=== PATIENT | male | born 1955 | race Caucasian/White ===

== ENCOUNTER 2016-08-14 14:18 | Emergency (ER) | payer BC ==
[2016-08-14 14:30] VITALS: RESP 18; TEMP 97.9
--- NOTE | 2016-08-14 14:36 | ED ---
Wound/Laceration HPI - General Chief Complaint: Wound/Laceration Stated Complaint: left hand lac (Chainsaw) Time Seen by Provider: 08/14/16 14:23 Source: patient, RN notes reviewed Mode of arrival: ambulatory Limitations: no limitations - History of Present Illness Initial Comments: 61-year-old male presents to the emergency Department chief complaint of left hand laceration. Patient is using the chainsaw today and he cut his left hand. Patient states he has no numbness or tingling. Patient states he has no changes in range of motion. Patient states he is at [place] tetanus. Patient states that he was concerned because he saw the blood in the severity of the cut. Patient states is not currently having any other symptoms at this time. Patient denies any recent fever, chills, shortness of breath, chest pain, back pain, abdominal pain, nausea vomiting, numbness or tingling, dysuria or hematuria, constipation or diarrhea, headaches or visual changes, or any other current symptoms. Review of Systems ROS Statement: Those systems with pertinent positive or pertinent negative responses have been documented in the HPI. ROS Other: All systems not noted in ROS Statement are negative. Past Medical History Past Medical History: No Reported History History of Any Multi-Drug Resistant Organisms: None Reported Past Surgical History: Orthopedic Surgery Additional Past Surgical History / Comment(s): Brain Hemmorage in 1998. Past Psychological History: No Psychological Hx Reported Smoking Status: Never smoker Past Alcohol Use History: Occasional Past Drug Use History: None Reported General Exam Limitations: no limitations General appearance: alert, in no apparent distress Respiratory exam: Present: normal lung sounds bilaterally. Absent: respiratory distress, wheezes, rales, rhonchi, stridor Cardiovascular Exam: Present: regular rate, normal rhythm, normal heart sounds. Absent: systolic murmur, diastolic murmur, rubs, gallop, clicks Left Elbow exam: Present: normal inspection, full ROM. Absent: tenderness, swelling Forearm Wrist exam: Present: normal inspection, full ROM. Absent: tenderness, swelling Hand Wrist exam: Present: full ROM, laceration (To the left hyperthenar area is about 3-4 cm in total with multiple stellate areas.). Absent: tenderness, swelling Neuro motor exam: Present: wrist extension intact, thumb opposition intact, thumb IP flexion intact, thumb adduction intact, fingers 2-5 abduction intact Neurosensory exam: Present: 2-point discrimination, radial nerve intact, ulnar nerve intact, median nerve intact Vascular: Present: normal capillary refill. Absent: vascular compromise Neurological exam: Present: alert, oriented X3 Psychiatric exam: Present: normal affect, normal mood Course Vital Signs 08/14/16 14:24 Temperature 97.9 F Pulse Rate 88 Respiratory 18 Rate Blood Pressure 196/102 O2 Sat by Pulse 100 Oximetry Procedures - Procedures Initial comment: The skin was anesthetized with 1% lidocaine. The laceration was then cleansed with Betadine and irrigated with normal saline. The wound was inspected, and there was no evidence of injury to deep structures. No foreign body was noted in the wound. A total of 14 skin sutures were placed utilizing bilateral nylon to a 6 cm left hand laceration that is stellate Medical Decision Making - Medical Decision Making 61-year-old male presents for a left hand laceration. Patient is up-to-date on his immunizations. Patient underwent suture care. We discussed return parameters and follow-up. We discussed outpatient family's questions. They stated they understood a management plan. This time they will be discharged home. - Radiology Data Radiology results: report reviewed, image reviewed Disposition Clinical Impression: Laceration of left hand Disposition: HOME SELF-CARE Condition: Stable Instructions: Laceration (ED) Additional Instructions: Please use medication as discussed. Please follow up with family doctor if symptoms have not improved over the next two days. Please return to the emergency room if your symptoms increase or worsen or for any other concerns. Please return to the emergency room in 8-10 days to have sutures removed. Please leave wound covered for the first 24-48 hours and then leave open to air after that time. Please use clean soap and water to clean the suture area to prevent scabbing over the top of your sutures. Please watch for any signs of infection which may include but not limited to increased pain, swelling, redness , fever or chills. Please return to the emergency room if any signs of infection do occur. Please return to the emergency room for any other concerns or complications. Referrals: Alice Stock MD [Primary Care Provider] - 1-2 days Time of Disposition: 15:14
--- NOTE | 2016-08-14 14:48 | XR ---
Left hand HISTORY: Laceration, trauma 3 views of the left hand Bone mineralization and alignment are maintained. Soft tissue defect compatible with patient's histor y of laceration is noted at the thenar eminence. There is no radiopaque foreign body. Osteoarthritic change is mild. IMPRESSION: No acute fracture or dislocation is evident.
[2016-08-14] MEDS ORDERED: cloNIDine HCL 0.1 MG TAB PO STA (15:24)
[2016-08-14 15:31] VITALS: BP 198/99; PULSE 80
== END 2016-08-14 15:31 | disposition home or self-care (01) ==
LOC: EC 14:18
DX: S61.412A Laceration without foreign body of left hand, initial encounter (principal); I10 Essential (primary) hypertension; W29.3XXA Contact with powered garden and outdoor hand tools and machinery, initial encounter
CPT/HCPCS: 12002; 99283

== ENCOUNTER 2017-06-09 21:49 | Emergency (ER) | payer BC ==
[2017-06-09 22:20] VITALS: TEMP 98
[2017-06-09] MEDS ORDERED: hydrALAZINE HCL 20 MG/ML 1 ML VIAL IVP STA (22:34)
--- NOTE | 2017-06-09 22:38 | ED ---
General Adult HPI - General Chief complaint: Recheck/Abnormal Lab/Rx Stated complaint: High Blood Pressure Time Seen by Provider: 06/09/17 22:00 Source: patient, RN notes reviewed Mode of arrival: ambulatory Limitations: no limitations - History of Present Illness Initial comments: This is a 62-year-old male who presents to the emergency department with past medical history significant for hypertension. Patient states he used to take hypertensive medications but stopped in 2012 because he couldn't afford them anymore. Patient states his blood pressure normally runs about 148 systolic. Patient states over the last couple of days at night he noted his blood pressure is elevated and he has had some slightly blurred vision though currently he is not having any blurred vision he denies any headache he denies numbness weakness. Patient denies any chest pain palpitations difficulty breathing or shortness of breath. Patient states currently he is completely asymptomatic he just took his blood pressure noted to be 205 and thought he needed to be seen. Patient states he can again for blood pressure medications if that is necessary. - Related Data Home Medications Medication Instructions Recorded Confirmed Aspirin 81 mg PO ONCE PRN 06/09/17 06/09/17 Previous Rx's Medication Instructions Recorded Lisinopril [Zestril] 10 mg PO DAILY #10 tab 06/09/17 Allergies Allergy/AdvReac Type Severity Reaction Status Date / Time Penicillins Allergy Anaphylaxis Verified 06/09/17 22:54 Review of Systems ROS Statement: Those systems with pertinent positive or pertinent negative responses have been documented in the HPI. ROS Other: All systems not noted in ROS Statement are negative. Past Medical History Past Medical History: No Reported History History of Any Multi-Drug Resistant Organisms: None Reported Past Surgical History: Orthopedic Surgery Additional Past Surgical History / Comment(s): Brain Hemmorage in 1998. Past Psychological History: No Psychological Hx Reported Smoking Status: Never smoker Past Alcohol Use History: Occasional Past Drug Use History: None Reported General Exam - General Exam Comments Initial Comments: GENERAL: Patient is well-developed and well-nourished. Patient is nontoxic and well- hydrated and is in no acute distress. ENT: Neck is soft and supple. No significant lymphadenopathy is noted. Oropharynx is clear. Moist mucous membranes. Neck has full range of motion without eliciting any pain. EYES: The sclera were anicteric and conjunctiva were pink and moist. Extraocular movements were intact and pupils were equal round and reactive to light. Eyelids were unremarkable. PULMONARY: Unlabored respirations. Good breath sounds bilaterally. No audible rales rhonchi or wheezing was noted. CARDIOVASCULAR: There is a regular rate and rhythm without any murmurs gallops or rubs. ABDOMEN: Soft and nontender with normal bowel sounds. No palpable organomegaly was noted. There is no palpable pulsatile mass. SKIN: Skin is clear with no lesions or rashes and otherwise unremarkable. NEUROLOGIC: Patient is alert and oriented x3. Cranial nerves II through XII are grossly intact. Motor and sensory are also intact. Normal speech, volume and content. Symmetrical smile. MUSCULOSKELETAL: Normal extremities with adequate strength and full range of motion. No lower extremity swelling or edema. No calf tenderness. LYMPHATICS: No significant lymphadenopathy is noted PSYCHIATRIC: Normal psychiatric evaluation. Normal interpersonal interactions appears functionally intact in deals appropriately with others. No signs of depression. No signs of anxiety. Limitations: no limitations Course Vital Signs 06/09/17 22:16 Temperature 98.0 F Pulse Rate 80 Respiratory 20 Rate Blood Pressure 224/105 O2 Sat by Pulse 98 Oximetry Medical Decision Making - Medical Decision Making EKG shows normal sinus rhythm at 67 bpm WA interval is 150 QRS is 82 QT interval 388 QTC is 409. Patient's EKG shows no ST segment elevation or depression or T wave abnormalities are noted. Patient's blood pressure came down nicely after one dose of hydralazine. Patient remained asymptomatic throughout his ED course. - Lab Data Result diagrams: 06/09/17 22:46 06/09/17 22:46 Lab Results 06/09/17 06/09/17 Range/Units 22:46 22:46 WBC 8.7 (3.8-10.6) k/uL RBC 4.66 (4.30-5.90) m/uL Hgb 14.3 (13.0-17.5) gm/dL Hct 42.1 (39.0-53.0) % MCV 90.4 (80.0-100.0) fL MCH 30.8 (25.0-35.0) pg MCHC 34.0 (31.0-37.0) g/dL RDW 12.8 (11.5-15.5) % Plt Count 297 (150-450) k/uL Neutrophils % 57 % Lymphocytes % 31 % Monocytes % 4 % Eosinophils % 5 % Basophils % 1 % Neutrophils # 5.0 (1.3-7.7) k/uL Lymphocytes # 2.7 (1.0-4.8) k/uL Monocytes # 0.4 (0-1.0) k/uL Eosinophils # 0.4 (0-0.7) k/uL Basophils # 0.1 (0-0.2) k/uL Sodium 143 (137-145) mmol/L Potassium 3.9 (3.5-5.1) mmol/L Chloride 102 (98-107) mmol/L Carbon Dioxide 31 H (22-30) mmol/L Anion Gap 10 mmol/L BUN 12 (9-20) mg/dL Creatinine 0.70 (0.66-1.25) mg/dL Est GFR (MDRD) Af Amer >60 (>60 ml/min/1.73 sqM) Est GFR (MDRD) Non-Af >60 (>60 ml/min/1.73 sqM) Glucose 95 (74-99) mg/dL Calcium 9.4 (8.4-10.2) mg/dL Magnesium 2.1 (1.6-2.3) mg/dL Total Bilirubin 0.4 (0.2-1.3) mg/dL AST 27 (17-59) U/L ALT 35 (21-72) U/L Alkaline Phosphatase 74 (38-126) U/L Total Protein 6.9 (6.3-8.2) g/dL Albumin 3.9 (3.5-5.0) g/dL Disposition Clinical Impression: Hypertensive urgency Disposition: HOME SELF-CARE Condition: Good Instructions: Hypertension (ED) Prescriptions: Lisinopril [Zestril] 10 mg PO DAILY #10 tab Referrals: Nonstaff,Physician [Primary Care Provider] - 1-2 days Time of Disposition: 23:18
[2017-06-09 22:58] LABS: Basophils # (A) 0.1 k/uL (0-0.2); Basophils % (A) 1 %; Eosinophils # (A) 0.4 k/uL (0-0.7); Eosinophils % (A) 5 %; HCT 42.1 % (39.0-53.0); HGB 14.3 gm/dL (13.0-17.5); Lymphocytes # (A) 2.7 k/uL (1.0-4.8); Lymphocytes % (A) 31 %; MCH 30.8 pg (25.0-35.0); MCV 90.4 fL (80.0-100.0); Mean Platelet Volume 6.3; Monocytes # (A) 0.4 k/uL (0-1.0); Monocytes % (A) 4 %; Neutrophils % (A) 57 %; Platelet Count 297 k/uL (150-450); RBC 4.66 m/uL (4.30-5.90); RDW 12.8 % (11.5-15.5); WBC 8.7 k/uL (3.8-10.6)
[2017-06-09 23:09] LABS: ALT 35 U/L (21-72); AST 27 U/L (17-59); Albumin 3.9 g/dL (3.5-5.0); Alkaline Phosphatase 74 U/L (38-126); Anion Gap 10 mmol/L; Blood Urea Nitrogen 12 mg/dL (9-20); Calcium 9.4 mg/dL (8.4-10.2); Carbon Dioxide 31 mmol/L (22-30); Chloride 102 mmol/L (98-107); Glucose 95 mg/dL (74-99); Potassium 3.9 mmol/L (3.5-5.1); Sodium 143 mmol/L (137-145); Total Bilirubin 0.4 mg/dL (0.2-1.3); Total Protein 6.9 g/dL (6.3-8.2)
[2017-06-09 23:19] VITALS: BP 159/69; PULSE 82; RESP 16
[2017-06-09] MEDS ORDERED: LISINOPRIL 10 MG TAB PO STA (23:20)
== END 2017-06-09 23:44 | disposition home or self-care (01) ==
LOC: EC 21:49
DX: I16.0 Hypertensive urgency (principal); Z88.0 Allergy status to penicillin
CPT/HCPCS: 36415; 93005; 80053; 83735; 85025; 99283; 96374; J0360

== ENCOUNTER → 2017-06-27 | Outpatient (CLI) | payer BC ==
--- NOTE | 2017-06-27 07:34 | US ---
EXAMINATION TYPE: US duplex aorta DATE OF EXAM: 06/27/2017 COMPARISON: None CLINICAL HISTORY: Abdominal Pain R10.9. HTN, no surgeries, nonsmoker EXAM MEASUREMENTS: Abdominal Aorta: Proximal: 1.5 x 1.8 cm Mid: 1.6 x 1.9 cm Distal: 1.1 x 1.5 cm Bifurcation: Right = 0.7 x 1.2 cm Left = 0.8 x 1.1 cm Limited exam due to overlying bowel gas. Portions not well visualized due to bowel gas. IMPRESSION: No evidence for abdominal aortic aneurysm at this time.
== END | disposition home or self-care (01) ==
LOC: RADUSWWP 06:54
PROVIDERS: ATTEND Internal Medicine Geriatric Medicine
DX: R10.9 Unspecified abdominal pain (principal)
CPT/HCPCS: 93979

== ENCOUNTER 2019-02-22 21:18 | Emergency (ER) | payer BC ==
[2019-02-22 21:26] VITALS: BP 161/72; PULSE 79; RESP 20; TEMP 97.5
[2019-02-22] MEDS ORDERED: MORPHINE SULFATE 4 MG/ML SYRINGE IM STA (21:53)
--- NOTE | 2019-02-22 22:14 | XR ---
EXAMINATION TYPE: XR ribs RT w pa chest xray DATE OF EXAM: 02/22/2019 COMPARISON: NONE HISTORY: Fall. Right-sided pain. TECHNIQUE: 5 views FINDINGS: Heart and mediastinum are normal. Lungs are clear. There is no pleural effusion or pneumoth orax. Right lung is clear of infiltrate. I see no rib fracture. IMPRESSION: Normal chest. Normal right ribs.
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
[2019-02-22] MEDS ORDERED: LIDOCAINE 5% PATCH TOPICAL STA (23:03)
[2019-02-22] MEDS ORDERED: IBUPROFEN 600 MG TAB PO STA (23:03)
[2019-02-22] MEDS ORDERED: HYDROcodone/APAP 5-325MG 1 EACH TAB PO STA (23:03)
[2019-02-22] MEDS ORDERED: ACET/COD 300 MG/30 MG STARTER PACK 6 TAB BTL PO STA (23:21)
== END 2019-02-22 23:34 | disposition home or self-care (01) ==
LOC: EC 21:18
DX: S20.211A Contusion of right front wall of thorax, initial encounter (principal); Z88.0 Allergy status to penicillin; W01.198A Fall on same level from slipping, tripping and stumbling with subsequent striking against other object, initial encounter
CPT/HCPCS: 96372; 99284; 71101; J2270

== ENCOUNTER 2019-06-06 12:25 | Emergency (ER) | payer BC ==
--- NOTE | 2019-06-06 12:43 | ED ---
Upper Extremity HPI - General Source: patient Mode of arrival: ambulatory Limitations: no limitations <Delma Trujillo - Last Filed: 06/06/19 13:41> <Carolina Chicas - Last Filed: 06/07/19 23:41> - General Chief Complaint: Extremity Injury, Upper Stated Complaint: fall, rt shoulder pain Time Seen by Provider: 06/06/19 12:31 - History of Present Illness Initial Comments: 64-year-old male presenting today for chief complaint of right shoulder pain. Patient states that he slipped and fell on ice 2 days ago falling directly onto his shoulder. Patient states he has had pain with range of motion of her sons. Patient states he is no pain in elbows of the wrist. Patient states that the pain sometimes is sharp shooting when he tries to range her shoulder down to his elbow. Patient denies any pain in the neck he denies any direct injury to the head mid or lower back. Patient denies any chest pain shortness of breath. Patient states it is tender to palpation of the anterior aspect of the shoulder joint. Patient has no other complaints denies any other areas of injury patient denies his being syncope stating he slipped and fell on ice in this was mechanical. Remaining systems negative upon arrival patient appears well no signs of acute distress ambulatory (Delma Trujillo) - Related Data Home Medications Medication Instructions Recorded Confirmed Aspirin 81 mg PO ONCE PRN 06/09/17 06/09/17 Previous Rx's Medication Instructions Recorded Lisinopril [Zestril] 10 mg PO DAILY #10 tab 06/09/17 Lidocaine 5% Patch [Lidoderm 5% 1 patch TOPICAL DAILY PRN 5 Days 02/22/19 Patch] #5 patch Allergies Allergy/AdvReac Type Severity Reaction Status Date / Time Penicillins Allergy Anaphylaxis Verified 06/06/19 12:30 Review of Systems ROS Other: All systems not noted in ROS Statement are negative. <Delma Trujillo - Last Filed: 06/06/19 13:41> ROS Other: All systems not noted in ROS Statement are negative. <Carolina Chicas - Last Filed: 06/07/19 23:41> ROS Statement: Those systems with pertinent positive or pertinent negative responses have been documented in the HPI. Past Medical History Past Medical History: Hypertension History of Any Multi-Drug Resistant Organisms: None Reported Past Surgical History: Orthopedic Surgery Additional Past Surgical History / Comment(s): Brain Hemmorage in 1998. Past Psychological History: No Psychological Hx Reported Smoking Status: Never smoker Past Alcohol Use History: Occasional Past Drug Use History: None Reported <Delma Trujillo - Last Filed: 06/06/19 13:41> General Exam Limitations: no limitations <Delma Trujillo - Last Filed: 06/06/19 13:41> - General Exam Comments Initial Comments: General: The patient is awake and alert, in no distress Eye: +3 mm pupils are equal, round and reactive to light, extra-ocular movements are intact. No nystagmus. There is normal conjunctiva bilaterally. No signs of icterus. Ears, nose, mouth and throat: There are moist mucous membranes and no oral lesions. Neck: The neck is supple, there is no tenderness or JVD. No midline tenderness to patient of the cervical spine. Cardiovascular: There is a regular rate and rhythm. No murmur, rub or gallop is appreciated. Respiratory: Lungs are clear to auscultation, respirations are non-labored, breath sounds are equal. No wheezes, stridor, rales, or rhonchi. Musculoskeletal: Full ROM of the shoulder b/l but pain with ROM with all movement of the right shoulder especially overhead. Pain to the AC joint. No scapular pain. No bruising over shoulder joint. Strength 5/5 at shoulder, . Sensation intact proximal and distal to injury site including the badge region. Patient is able to make the okay fingers crossed thumbs-up and oppose all digits and thumb no evidence of wristdrop. No tenderness to palpation over the elbow joint. Radial pulses equal bilaterally 2+. Neurological: A&O x 3. CN II-XII intact grossly, There are no obvious motor or sensory deficits. Coordination appears grossly intact. Speech is normal. Skin: Skin is warm and dry and no rashes or lesions are noted. Psychiatric: Cooperative, appropriate mood & affect, normal judgment. (Delma Trujillo) Course Vital Signs 06/06/19 06/06/19 06/06/19 12:27 13:15 13:30 Temperature 98.2 F 98.3 F Pulse Rate 73 68 Respiratory 16 15 20 Rate Blood Pressure 210/89 169/78 O2 Sat by Pulse 97 99 Oximetry Medical Decision Making <Delma Trujillo - Last Filed: 06/06/19 13:41> <Carolina Chicas - Last Filed: 06/07/19 23:41> - Medical Decision Making 64-year-old male presenting for right shoulder pain after slip and fall on ice with direct contact with the ground and his right shoulder. No dislocation. Before meals joint appears slightly . Patient is neurovascularly intact. Patient is placed in a sling for comfort. Given Orthopedic f/u. Symptomatic relief options were discussed at length the patient, who verbalized understanding. Return parameters importance of follow-up or discussed the patient verbalized understanding imaging studies in case was discussed with attending provider Dr. Chicas who is agreeable to care plan and discharge. (Delma Trujillo) I was available for consultation in the emergency department. The history and physical exam were done by the midlevel provider. I was consulted for this patients care. I reviewed the case with the midlevel provider and based on their presentation of the patient, I agree with the assessment, medical decision making and plan of care as documented. Chart was dictated using [employer] dictation software. Attempts were made to correct any dictation errors however some typographical errors may persist. (Carolina Chicas) Disposition Is patient prescribed a controlled substance at d/c from ED?: No Time of Disposition: 13:13 <Delma Trujillo - Last Filed: 06/06/19 13:41> <Carolina Chicas - Last Filed: 06/07/19 23:41> Clinical Impression: Right shoulder pain, AC joint pain, Fall Disposition: HOME SELF-CARE Condition: Good Instructions (If sedation given, give patient instructions): Acromioclavicular Separation (ED) Additional Instructions: Please use medication as discussed. Please follow-up with family doctor in the next 2 days, wear sling for comfort and seek orthopedic evaluation in next week. Please return to emergency room if the symptoms increase or worsen or for any other concerns. Referrals: Sudhir Duarte MD [Primary Care Provider] - 1-2 days Lucrecia Lino PAC [PHYSICIAN [employer] MACHINE OPERATOR] - 1-2 days
[2019-06-06] MEDS ORDERED: ACET/COD 300 MG/30 MG STARTER PACK 6 TAB BTL PO STA (12:49)
[2019-06-06 13:16] VITALS: BP 169/78; PULSE 68; TEMP 98.3
--- NOTE | 2019-06-06 13:24 | XR ---
EXAMINATION TYPE: XR shoulder complete RT , 3 VIEWS DATE OF EXAM ORDERED: 06/06/2019 HISTORY: fall on the right shoulder, slip on ice. COMPARISON: Previous study dated 05/25/2008. FINDINGS: There are mild hypertrophic changes in the right AC joint. No fracture, dislocation or oth er acute osseous lesion is seen. IMPRESSION: 1. NO ACUTE OSSEOUS LESION. 2. MILD DEGENERATIVE CHANGE.
[2019-06-06 13:40] VITALS: RESP 20
== END 2019-06-06 12:35 | disposition home or self-care (01) ==
LOC: EC 12:25
DX: M25.511 Pain in right shoulder (principal); I10 Essential (primary) hypertension; Z79.82 Long term (current) use of aspirin; Z88.0 Allergy status to penicillin; W00.0XXA Fall on same level due to ice and snow, initial encounter
CPT/HCPCS: 99283